=== PATIENT | male | born 1995 | race Caucasian/White ===

== ENCOUNTER 2024-02-06 20:30 | Emergency (ER) | payer MEDICAID, SELFPAY ==
--- NOTE | ~2024-02-06 | XR_ITS ---
EXAMINATION: XR HAND, RIGHT CLINICAL INFORMATION: Injury, swelling COMPARISON: None available. TECHNIQUE: PA, lateral, and oblique views of the right hand. FINDINGS: Minimally displaced fracture of the fifth proximal metacarpal with lateral angulation. Associated soft tissue swelling. No radiopaque foreign bodies. XR/XR hand RT min 3V IMPRESSION: Minimally displaced fifth proximal metacarpal fracture. Electronically signed by: Gaston Ansari DO 02/06/2024 10:17 PM [facility]
[2024-02-06 20:35] VITALS: BP 140/78; BP 148/104; PULSE 63; PULSE 70; RESP 16; TEMP 36.9; O2SAT 97; O2SAT 98; BMI 34.0
--- NOTE | 2024-02-06 21:37 | ED_ITS ---
HPI - Extremity Problem General Chief complaint: Extremity Injury, Upper Stated complaint: in pd custody, punched a wall Time Seen by Provider: 02/06/24 20:33 Source: patient Mode of arrival: other (Police custody) Limitations: no limitations History of Present Illness ED Provider: Zoila Hoffman NP HPI Narrative: Patient is a 20-year-old male presents emergency department for evaluation, right-hand dominant having evaluation for right hand pain after punching a wall anger. Localized swelling. Denies any prior injury to this hand. Related Data Previous Rx's ?Medication ?Instructions ?Recorded cephalexin 500 mg capsule 500 mg PO QID #28 caps 02/06/24 Allergies Allergy/AdvReac Type Severity Reaction Status Date / Time No Known Allergies Allergy Verified 02/06/24 20:39 Review of Systems Review of Systems: Yes all other systems are reviewed and are negative [facility] Past Medical History Attestation statement: The following information was validated with the patient. Source: old records reviewed Social History Social History Advance Directives: No Advance Directives Information Provided: No Do you have a plan to hurt others: No Plan Physical Exam Vital Signs: Vital Signs: Last Vital Signs Temp 98.4 F 02/07/24 01:50 Pulse 75 02/07/24 01:50 Resp 16 02/07/24 01:50 BP 136/62 02/07/24 01:50 Pulse Ox 98 02/07/24 01:50 O2 Del Method Room Air 02/07/24 01:50 BMI result Body Mass Index 34.0 Appearance: Alert.?Oriented to person, place and time. No acute distress.?Normal affect. CVS: Heart sounds normal. Normal heart rate and rhythm.? Pulses normal.?? Respiratory: No respiratory distress.? Lung sounds clear to auscultation bilaterally?? Skin: Skin warm and dry.? Normal skin color.? Superficial abrasions over the dorsum of the hand and digits on the Extremities: Localized swelling over the dorsum of the right hand 3-5 metacarpals Neuro: Moves all extremities spontaneously. Sensation intact bilaterally. Ambulates with normal steady gait. Medications Administered Discontinued Medications Generic Name Dose Route Start Last Admin Trade Name Freq PRN Reason Stop Dose Admin Acetaminophen 650 mg 02/06/24 22:32 02/06/24 22:44 Acetaminophen 325 Mg Tablet PO 02/06/24 22:33 650 mg ONCE ONE Administration Cephalexin HCl 500 mg 02/06/24 23:20 02/06/24 23:41 Cephalexin 500 Mg Capsule PO 02/06/24 23:21 500 mg ONCE ONE Administration Oxycodone HCl 5 mg 02/06/24 22:32 02/06/24 22:44 Oxycodone Hcl Immed Release 5 Mg Tablet PO 02/06/24 22:33 5 mg ONCE ONE Administration Medical Decision Making Medical Decision Making [facility] Narrative: Patient is a 28-year-old male right-hand dominant presenting to emergency department for evaluation of traumatic right hand pain as per HPI. Initial differential diagnosis including fracture, dislocation, sprain, contusion. XR obtained and reveals a minimally displaced fracture of the 5th MCP. He was placed in an ulnar gutter splint, tolerated procedure well, remained neurovascularly intact distally after application. We discussed management of care, and outpatient follow-up with hand specialist. Prophylactic antibiotics were sent to the pharmacy given the abrasions present at the time this occurred. All questions were answered. Stable for discharge Differential Diagnosis Differential Diagnoses: The differential diagnosis associated with the presentation includes (See narrative above) Independent Interpretation I performed an independent interpretation of an: Plain X-Ray (See narrative above) Radiology Impression Discussion of test interpretation with radiology: I have reviewed the ra diologist's reading. Radiologist Impression: FINDINGS: Minimally displaced fracture of the fifth proximal metacarpal with lateral angulation. Associated soft tissue swelling. No radiopaque foreign bodies. XR/XR hand RT min 3V IMPRESSION: Minimally displaced fifth proximal metacarpal fracture. Independent Historian Clinical information obtained from an independent historian. History obtained from or confirmed by: Other (safety instruction police officer) Prescription Management I considered prescription management with: Pain Medication and Antibiotic Procedures Orthopedic Splinting/Casting Injury #1: Side: right Upper Extremity Injury Location: hand Upper Extremity Immobilizer: ulnar gutter Discharge Plan Discharge Clinical Impression: Fracture of metacarpal Qualifiers: Encounter type: initial encounter Metacarpal bone: fifth Metacarpal location: base Patient Disposition: Home, Self-Care Instructions: Hand Fracture (ED) Additional Instructions: You can take ibuprofen 200 mg, 3 tablets (600mg) every 6-8 hours as needed for pain, in addition to Tylenol 500 mg, 2 tablets (1,000mg) every 4-6 hours as needed for pain, but not to exceed 3 doses daily (3,000mg).? The splint can not get wet, it must remain in place at all times. A course of antibiotics has been sent to the pharmacy the cuts present on the hand at the time of fracture. Contact the outreach specialist to arrange for outpatient follow-up. Return to emergency department any new or worsening symptoms or concerns Prescriptions: New cephalexin 500 mg capsule 500 mg PO QID Qty: 28 0RF Referrals: Trudy Abraham MD [Physician] - Interventions: ED Discharge Assessment Last Done: 02/07/24 01:50 Discharge Date/Time: 02/07/24 00:00 Print Language: Estonian
[2024-02-06] MEDS: oxyCODONE HCl Immed Release 5 MG TABLET PO (22:44)
[2024-02-06] MEDS: Acetaminophen 325 MG TABLET 650 MG PO (22:44)
[2024-02-06] MEDS: cephALEXin 500 MG CAPSULE PO (23:41)
[2024-02-07 01:50] VITALS: BP 136/62; PULSE 75; RESP 16; TEMP 36.9; O2SAT 98
== END 2024-02-07 | disposition home or self-care (01) ==
PROVIDERS: Emergency Provider Emergency Medicine
DX: S62.316A Displaced fracture of base of fifth metacarpal bone, right hand, initial encounter for closed fracture (principal); W22.8XXA Striking against or struck by other objects, initial encounter; Y93.89 Activity, other specified; Y92.9 Unspecified place or not applicable; Y99.9 Unspecified external cause status
CPT/HCPCS: 73130; 99283